=== PATIENT | male | born 1950 | race Caucasian/White ===

== ENCOUNTER → 2024-01-21 17:06 | Outpatient (REF) | payer MEDICARE, OTHER, SELFPAY | LOC: DHSLP 17:06 | PROVIDERS: ATTENDING PHYSICIAN Family Medicine; FAMILY PHYSICIAN Internal Medicine Critical Care Medicine | DX: G47.33 Obstructive sleep apnea (adult) (pediatric) (principal) | CPT/HCPCS: 95800 ==